=== PATIENT | male | born 1970 | race African-American/Black ===

== ENCOUNTER 2023-04-19 13:49 | Inpatient (IN) | payer MEDICAID, OTHER ==
[~2023-04-19] VITALS: Ht 182.9 cm; Wt 81.8 kg
[2023-04-19] MEDS ORDERED: ONDANSETRON HCL 4 MG/2 ML VIAL IV PRN (18:00)
[2023-04-19] MEDS ORDERED: SODIUM CHLORIDE 0.9% 1,000 ML IV SCH (18:00)
[2023-04-19] MEDS ORDERED: HYDROcodone-ACET 5/325MG TAB PO PRN (18:00)
[2023-04-19] MEDS ORDERED: MORPHINE SULFATE INJ 2 MG/ml SYRG IV PRN ×2 (18:00)
[2023-04-19] MEDS ORDERED: NITROGLYCERIN 0.4 MG SL TAB SL PRN (18:00)
[2023-04-19 18:18] LABS: Basophils # (auto) 0 10 ^3/uL (0-0.2); Basophils % (auto) 0.4 % (0.0-2.0); Eosinophils # (auto) 0.1 10 ^3/uL (0-0.8); Eosinophils % (auto) 1.7 % (0.0-7.0); Hematocrit 45.4 % (41.0-53.0); Hemoglobin 15.1 g/dL (13.5-17.5); Lymphocytes # (auto) 1.8 10 ^3/uL (0.4-5.4); Lymphocytes % (auto) 24.7 % (10.0-50.0); Mean Corpuscular Hemoglobin 31.6 pg (28.0-32.0); Mean Corpuscular Hgb Conc. 33.3 g/dL (32.0-36.0); Mean Corpuscular Volume 94.8 fL (80.0-100.0); Monocytes # (auto) 0.4 10 ^3/uL (0-1.3); Monocytes % (auto) 4.9 % (0.0-12.0); Neutrophils # (auto) 5.1 10 ^3/uL (1.6-8.6); Neutrophils % (auto) 68.3 % (37.0-80.0); Nucleated Red Blood Cells % 0.1 %; Red Blood Cells 4.79 10^6/uL (4.5-5.90); Red Cell Distribution Width 12.5 % (11.8-14.3); White Blood Cell 7.5 10^3/uL (4.4-10.8)
[2023-04-19 18:25] LABS: Alanine Aminotransferase 14 U/L (7-40); Albumin 4.6 g/dL (3.2-4.8); Alkaline Phosphatase 75 U/L (46-116); Anion Gap 10 (5-15); Aspartate Aminotransferase 20 U/L (13-40); BUN/Creatinine Ratio 5.8 (10.0-20.0); Bilirubin, Total 0.5 mg/dL (0.2-1.0); Blood Urea Nitrogen 15 mg/dL (9-23); Calcium 9.7 mg/dL (8.5-10.1); Carbon Dioxide 22 mmol/L (20-30); Chloride 104 mmol/L (98-107); Glucose 84 mg/dL (74-106); Potassium 4.8 mmol/L (3.5-5.1); Sodium 136 mmol/L (136-145); Total Protein 7.4 g/dL (5.7-8.2)
[2023-04-20] VITALS (7 sets, daily range): BP systolic 115–117; BP diastolic 71–76; PULSE 62–99; RESP 9–18; TEMP 36.7; O2SAT 95–100
[2023-04-20] MEDS: NITROGLYCERIN 0.4 MG SL TAB SL ONE (01:48)
[2023-04-20] MEDS: PANTOPRAZOLE 40 MG/10 ML VIAL INJ IV SCH (03:56)
[2023-04-20] MEDS: SODIUM CHLORIDE 0.9% 1,000 ML IV SCH (03:57)
[2023-04-20] MEDS: ASPirin 325 MG TAB PO ONE (03:57)
[2023-04-20] MEDS: cefTRIAXone 1GM/50ML D5W 50 ML IV SCH (03:57)
[2023-04-20 05:02] LABS: Basophils # (auto) 0 10 ^3/uL (0-0.2); Basophils % (auto) 0.5 % (0.0-2.0); Eosinophils # (auto) 0.2 10 ^3/uL (0-0.8); Eosinophils % (auto) 2.5 % (0.0-7.0); Hematocrit 39.2 % (41.0-53.0); Hemoglobin 13.1 g/dL (13.5-17.5); Lymphocytes # (auto) 3.1 10 ^3/uL (0.4-5.4); Lymphocytes % (auto) 44.6 % (10.0-50.0); Mean Corpuscular Hemoglobin 31.4 pg (28.0-32.0); Mean Corpuscular Hgb Conc. 33.4 g/dL (32.0-36.0); Mean Corpuscular Volume 94.2 fL (80.0-100.0); Monocytes # (auto) 0.6 10 ^3/uL (0-1.3); Monocytes % (auto) 8.3 % (0.0-12.0); Neutrophils # (auto) 3.1 10 ^3/uL (1.6-8.6); Neutrophils % (auto) 44.1 % (37.0-80.0); Nucleated Red Blood Cells % 0.1 %; Red Blood Cells 4.17 10^6/uL (4.5-5.90); Red Cell Distribution Width 12.4 % (11.8-14.3); White Blood Cell 6.9 10^3/uL (4.4-10.8)
[2023-04-20 05:30] LABS: Alanine Aminotransferase 12 U/L (7-40); Albumin 3.9 g/dL (3.2-4.8); Alkaline Phosphatase 66 U/L (46-116); Anion Gap 6 (5-15); Aspartate Aminotransferase 21 U/L (13-40); BUN/Creatinine Ratio 12.7 (10.0-20.0); Blood Urea Nitrogen 14 mg/dL (9-23); Calcium 8.9 mg/dL (8.5-10.1); Carbon Dioxide 26 mmol/L (20-30); Chloride 106 mmol/L (98-107); Cholesterol 131 mg/dL (< 200); Glucose 109 mg/dL (74-106); HDL Cholesterol 29 mg/dL (40-59); LDL Cholesterol 90 mg/dL (< 100); Potassium 3.9 mmol/L (3.5-5.1); Sodium 138 mmol/L (136-145); Triglycerides 68 mg/dL (< 150)
[2023-04-20 05:31] LABS: Bilirubin, Total 0.3 mg/dL (0.2-1.0); Total Protein 6.2 g/dL (5.7-8.2)
[2023-04-20 05:45] LABS: Lipase 57 U/L (12-53)
[2023-04-20] MEDS ORDERED: CIPR500T4 PO (10:26)
[2023-04-20] MEDS ORDERED: HYDR1TAB97 PO (11:13)
[2023-04-20 15:34] LABS: Urine Bacteria NONE SEEN /hpf (None Seen); Urine Blood Negative /uL (Negative); Urine Clarity Clear (Clear); Urine Color Yellow (Yellow); Urine Mucus MODERATE (None Seen); Urine Protein, UAD 1+ (Negative); Urine Specific Gravity 1.035 (1.001-1.035); Urine Urobilinogen Normal (Negative); Urine WBC 17 /hpf (0 - 3); Urine pH 5.5 (5.0-8.0)
[2023-04-20 15:42] LABS: Amphetamine Screen, Urine Pos (NEGATIVE); Barbiturate Scree,Urine Neg (NEGATIVE); Benzodiazephine Screen, Urine Pos (NEGATIVE); Cannabinoid Screen, Urine Pos (NEGATIVE); Cocaine Screen, Urine Neg (NEGATIVE); Opiate Scree,Urine Neg (NEGATIVE); Phencyclidine Screen, Urine Neg (NEGATIVE)
== END 2023-04-20 19:00 | disposition home or self-care (01) | DRG 203 ==
LOC: EDBD 13:49 → ER 13:49 → OVERFLOW 17:55 → TELE-CENTR 04-20 10:02
PROVIDERS: ADMIT Hospitalist; ATTEND Hospitalist
DX: R07.89 Other chest pain (principal); F19.10 Other psychoactive substance abuse, uncomplicated; I10 Essential (primary) hypertension; R00.0 Tachycardia, unspecified; Z87.891 Personal history of nicotine dependence
CPT/HCPCS: 36415; 71045; 76700; 78582; 80053; 80061; 80307; 81001; 83036; 83690; 84484; 85025; 85379; 87086; 93005; 93306; C9113; G0378

== ENCOUNTER 2023-06-14 00:50 | Emergency (ER) | payer MEDICAID ==
[~2023-06-14] VITALS: Ht 177.8 cm; Wt 72.7 kg
[~2023-06-14 00:50] MED LIST: CIPR500T4 PO; HYDR1TAB97 PO
[2023-06-14 00:56] VITALS: BP 131/73; RESP 16; O2SAT 99
[2023-06-14 01:46] LABS: Basophils # (auto) 0 10 ^3/uL (0-0.2); Basophils % (auto) 0.2 % (0.0-2.0); Eosinophils # (auto) 0.2 10 ^3/uL (0-0.8); Hematocrit 39.6 % (41.0-53.0); Lymphocytes # (auto) 3.4 10 ^3/uL (0.4-5.4); Lymphocytes % (auto) 51.3 % (10.0-50.0); Mean Corpuscular Hemoglobin 31.1 pg (28.0-32.0); Mean Corpuscular Hgb Conc. 32.8 g/dL (32.0-36.0); Mean Corpuscular Volume 94.6 fL (80.0-100.0); Monocytes # (auto) 0.4 10 ^3/uL (0-1.3); Monocytes % (auto) 6.6 % (0.0-12.0); Neutrophils # (auto) 2.6 10 ^3/uL (1.6-8.6); Neutrophils % (auto) 38.9 % (37.0-80.0); Red Blood Cells 4.19 10^6/uL (4.5-5.90); Red Cell Distribution Width 12.9 % (11.8-14.3); White Blood Cell 6.6 10^3/uL (4.4-10.8)
[2023-06-14 01:50] VITALS: PULSE 65
[2023-06-14 01:51] LABS: Alanine Aminotransferase 15 U/L (7-40); Albumin 4.6 g/dL (3.2-4.8); Alkaline Phosphatase 88 U/L (46-116); Anion Gap 7 (5-15); Aspartate Aminotransferase 26 U/L (13-40); BUN/Creatinine Ratio 13.3 (10.0-20.0); Bilirubin, Total 0.3 mg/dL (0.2-1.0); Blood Urea Nitrogen 13 mg/dL (9-23); Calcium 9.6 mg/dL (8.5-10.1); Carbon Dioxide 26 mmol/L (20-30); Chloride 106 mmol/L (98-107); Glucose 85 mg/dL (74-106); Potassium 3.5 mmol/L (3.5-5.1); Sodium 139 mmol/L (136-145); Total Protein 7.4 g/dL (5.7-8.2)
[2023-06-14 02:02] LABS: INR 0.98 (0.9-1.15); Partial Thromboplastin Time 26.8 SEC (24.5-34.5); Prothrombin Time 10.4 sec (9.3-11.8)
[2023-06-14] MEDS ORDERED: cefTRIAXone 1GM/50ML D5W 50 ML IV ONE (03:15)
== END 2023-06-14 04:15 | disposition home or self-care (01) ==
LOC: ER 00:50
DX: R07.89 Other chest pain (principal); Z79.2 Long term (current) use of antibiotics; Z79.899 Other long term (current) drug therapy
CPT/HCPCS: 36415; 71045; 80053; 83735; 83880; 84484; 85025; 85610; 85730; 93005

== ENCOUNTER 2024-03-27 19:09 | Emergency (ER) | payer MEDICAID ==
[~2024-03-27] VITALS: Ht 177.8 cm; Wt 67.6 kg
[2024-03-27 19:33] VITALS: BP 134/87; RESP 19; O2SAT 98
[2024-03-27 19:35] VITALS: PULSE 91
--- NOTE | 2024-03-27 20:11 | DVH ---
EXAM: CT HEAD WITHOUT CONTRAST INDICATION: lt side numbness TECHNIQUE: CT of the head without intravenous contrast. Radiation Dose Information: CT Dose: CTDI volume is 54.89 mGy. Dose-length product is 879.9 mGy*cm The dose indicators for CT are the volume Computed Tomography (CT) Dose Index (CTDIvol) and the Dose Length Product (DLP), and are measured in units of mGy and mGy-cm, respectively. These indicators are not patient dose, but values generated from the CT scanner acquisition factors. The report includes radiation exposure data for exposures received during this examination. COMPARISON: None FINDINGS: There is no evidence of acute intracranial hemorrhage, extra-axial collection, mass effect, midline s hift, herniation or hydrocephalus. 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 The ventricles, sulci and cisterns are age appropriate. The paul-white differentiation is intact. Patchy periventricular and subcortical white matter hypoattenuation is nonspecific but may be related to small vessel ischemic disease. The visualized paranasal sinuses and mastoid air cells are clear. The surrounding soft tissues and osseous structures are unremarkable. IMPRESSION: 1. 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 2. No acute intracranial hemorrhage. 3. No CT findings of displaced skull fracture
[2024-03-27 20:23] LABS: Basophils # (auto) 0 10 ^3/uL (0-0.2); Basophils % (auto) 0.5 % (0.0-2.0); Eosinophils # (auto) 0.2 10 ^3/uL (0-0.8); Eosinophils % (auto) 2.2 % (0.0-7.0); Hematocrit 39.2 % (41.0-53.0); Hemoglobin 13.4 g/dL (13.5-17.5); Mean Corpuscular Hgb Conc. 34.2 g/dL (32.0-36.0); Mean Corpuscular Volume 93.8 fL (80.0-100.0); Monocytes # (auto) 0.5 10 ^3/uL (0-1.3); Monocytes % (auto) 7.5 % (0.0-12.0); Neutrophils # (auto) 3.4 10 ^3/uL (1.6-8.6); Neutrophils % (auto) 47.8 % (37.0-80.0); Nucleated Red Blood Cells % 0.1 %; Platelet Count (auto) 277 10^3/uL (140-450); Red Blood Cells 4.18 10^6/uL (4.5-5.90); Red Cell Distribution Width 12.7 % (11.8-14.3)
[2024-03-27 20:36] LABS: Alanine Aminotransferase 16 U/L (7-40); Albumin 4.3 g/dL (3.2-4.8); Alkaline Phosphatase 68 U/L (46-116); Anion Gap 7 (5-15); BUN/Creatinine Ratio 17.8 (10.0-20.0); Bilirubin, Total 0.3 mg/dL (0.2-1.0); Blood Urea Nitrogen 18 mg/dL (9-23); Calcium 9.4 mg/dL (8.7-10.4); Carbon Dioxide 24 mmol/L (20-31); Glucose 88 mg/dL (74-106); Potassium 4.2 mmol/L (3.5-5.1); Sodium 139 mmol/L (136-145); Total Protein 6.2 g/dL (5.7-8.2)
[2024-03-27 20:39] LABS: Aspartate Aminotransferase 11 U/L (13-40); Chloride 108 mmol/L (98-107)
--- NOTE | 2024-03-27 20:52 | ED.PDOC ---
History of Present Illness HPI Comments 53 y/o M, presents to the ED for CC of left hand numbness. Patient states, that he has been experiencing left hand numbness since 1955 today (03/27/24). Patient comments on, concerns of possible CVA due to brother having history of CVA in the past. Patient comments on mild improvement of symptoms upon arrival of ED. Patient denies headache, chest pain, shortness or breath, or fatigue. No other symptoms or modifying factors at this time. Chief Complaint: Left Sided Weakness Time Seen by MD: 20:40 Primary Care Provider: viky Reviewed Notes: Nurses Notes, Medications, Allergies Allergies: Coded Allergies: NO KNOWN ALLERGIES (Unverified , 04/19/23) Home Meds Reported Medications Hydrocodone-Acetaminophen (Hydrocodone/Acetaminophen 5-325 mg) 1 Tab Tab, 1 TAB PO Q6HPRN for PAIN MDD 4 04/20/23 Ciprofloxacin Hcl (Ciprofloxacin Hcl) 500 Mg Tab, 1 TAB PO BID 04/20/23 Information Source: Patient Mode of Arrival: Ambulatory Severity: Mild Timing: Minutes Duration: Since onset Prehospital treatment: None Past Medical History PAST MEDICAL HISTORY: Denies Surgical History: Denies all surgeries Family History Family History: Reviewed,noncontributory to illness Social History Smoker: Non-Smoker Alcohol: Occasionally Drugs: Marijuana, Methamphetamine Lives In: Home Constitutional: denies: chills, diaphoresis, fatigue, fever, malaise, sweats, weakness, others EENTM: denies: blurred vision, double vision, ear bleeding, ear discharge, ear drainage, ear pain, ear ringing, eye pain, eye redness, hearing loss, mouth pain, mouth swelling, nasal discharge, nose bleeding, nose congestion, nose pain, photophobia, tearing, throat pain, throat swelling, voice changes, others Respiratory: denies: cough, hemoptysis, orthopnea, SOB at rest, shortness of breath, SOB with excertion, stridor, wheezing, others Cardiovascular: denies: chest pain, dizzy spells, diaphoresis, Dyspnea on exertion, edema, irregular heart beat, left arm pain, lightheadedness, palpitations, PND, syncope, others Gastrointestinal: denies: abdomen distended, abdominal pain, blood streaked bowels, constipated, diarrhea, dysphagia, difficulty swallowing, hematemesis, melena, nausea, poor appetite, poor fluid intake, rectal bleeding, rectal pain, vomiting, others Genitourinary: denies: burning, dysuria, flank pain, frequency, hematuria, incontinence, penile discharge, penile sore, pain, testicle pain, testicle swelling, urgency, others Neurological: reports: numbness (LEFT HAND); denies: dizziness, fainting, headache, left sided numbness, left sided weakness, paresthesia, pre-existing deficit, right sided numbness, right sided weakness, seizure, speech problems, tingling, tremors, weakness, others Musculoskeletal: denies: back pain, gout, joint pain, joint swelling, muscle pain, muscle stiffness, neck pain, others Integumetry: denies: bruises, change in color, change in hair/nails, dryness, laceration, lesions, lumps, rash, wounds, others Allergic/Immunocompromised: denies: Difficulty Healing, Frequent Infections, Hives, Itching, others Hematologic/Lymphatic: denies: anemia, blood clots, easy bleeding, easy bruising, swollen glands, others Endocrine: denies: excessive hunger, excessive sweating, excessive thirst, excessive urination, flushing, intolerance to cold, intolerance to heat, unexplained weight gain, unexplained weight loss, others Psychiatric: denies: anxiety, bipolar disorder, depression, hopeless, panic disorder, schizophrenia, sleepless, suicidal, others All Other Systems: Reviewed and Negative Physical Exam General Appearance: No Apparent Distress, Normal HEENT: Normal ENT Inspection, Pharynx Normal, TMs Normal Neck: Full Range of Motion, Non-Tender, Normal, Normal Inspection Respiratory: Chest Non-Tender, Lungs Clear, No Accessory Muscle Use, No Respiratory Distress, Normal Breath Sounds Cardiovascular: No Edema, No JVD, No Murmur, No Gallop, Normal Peripheral Pulses, Regular Rate/Rhythm Breast Exam: Deferred Gastrointestinal: No Organomegaly, Non Tender, No Pulsatile Mass, Normal Bowel Sounds, Soft Genitalia: Deferred Pelvic: Deferred Rectal: Deferred Extremities: No calf tenderness, Normal capillary refill, Normal inspection, Normal range of motion, Non-tender, No pedal edema Musculoskeletal : Apperance: Normal Neurologic: Alert, health science writer II-XII nml as Tested, No Motor Deficits, Normal Affect, Normal Mood, No Sensory Deficits, Other (NO PRONATOR DRIFT) Cerebellar Function: Normal Reflexes: Normal Skin: Dry, Normal Color, Warm Lymphatic: No Adenopathy Was a procedure done? Was a procedure done?: No Differential Dx Considerations may include: STROKE X-Ray, Labs, Meds, VS Vital Signs Date Time Temp Pulse Resp B/P (MAP) Pulse Ox O2 Delivery O2 Flow Rate FiO2 03/27/24 19:35 91 03/27/24 19:33 98.8 106 19 134/87 (103) 98 Lab Test 03/27/24 20:08 03/27/24 19:30 Range/Units White Blood Count 7.0 4.4-10.8 10^3/uL Red Blood Count 4.18 L 4.5-5.90 10^6/uL Hemoglobin 13.4 L 13.5-17.5 g/dL Hematocrit 39.2 L 41.0-53.0 % Mean Corpuscular Volume 93.8 80.0-100.0 fL Mean Corpuscular Hemoglobin 32.0 28.0-32.0 pg Mean Corpuscular Hemoglobin Concent 34.2 32.0-36.0 g/dL Red Cell Distribution Width 12.7 11.8-14.3 % Platelet Count 277 140-450 10^3/uL Mean Platelet Volume 8.3 6.9-10.8 fL Neutrophils (%) (Auto) 47.8 37.0-80.0 % Lymphocytes (%) (Auto) 42.0 10.0-50.0 % Monocytes (%) (Auto) 7.5 0.0-12.0 % Eosinophils (%) (Auto) 2.2 0.0-7.0 % Basophils (%) (Auto) 0.5 0.0-2.0 % Neutrophils # (Auto) 3.4 1.6-8.6 10 ^3/uL Lymphocytes # (Auto) 3.0 0.4-5.4 10 ^3/uL Monocytes # (Auto) 0.5 0-1.3 10 ^3/uL Eosinophils # (Auto) 0.2 0-0.8 10 ^3/uL Basophils # (Auto) 0 0-0.2 10 ^3/uL Nucleated Red Blood Cells 0.1 % Sodium Level 139 136-145 mmol/L Potassium Level 4.2 3.5-5.1 mmol/L Chloride Level 108 H 98-107 mmol/L Carbon Dioxide Level 24 20-31 mmol/L Anion Gap 7 5-15 Blood Urea Nitrogen 18 9-23 mg/dL Creatinine 1.01 0.700-1.30 mg/dL Glomerular Filtration Rate Calc 90 >90 mL/min BUN/Creatinine Ratio 17.8 10.0-20.0 Serum Glucose 88 74-106 mg/dL Calcium Level 9.4 8.7-10.4 mg/dL Total Bilirubin 0.3 0.2-1.0 mg/dL Aspartate Amino Transferase (AST) 11 L 13-40 U/L Alanine Aminotransferase (ALT) 16 7-40 U/L Alkaline Phosphatase 68 46-116 U/L Troponin I High Sensitivity 3 L </=54 ng/L Total Protein 6.2 5.7-8.2 g/dL Albumin 4.3 3.2-4.8 g/dL POC Glucose 127 H 70-106 mg/dl [place] [id number] Ph: [phone] DIAGNOSTIC IMAGING Diagnostic Imaging Report : [id number] Signed PATIENT: CLARI KIM ACCT: [id number] UNIT: [id number] : 1970 LOC: ER ROOM / BED: / AGE / SEX: 53 / M ADM STATUS: REG ER SERVICE 31 ORDERING PHYSICIAN: VINH REYES PROCEDURE(s): HWOCT - HEAD WITHOUT CONTRAST REASON: lt side numbness ORDER NUMBER(s): [id number], ACCESSION NUMBER(s): [id number] EXAM: CT HEAD WITHOUT CONTRAST INDICATION: lt side numbness TECHNIQUE: CT of the head without intravenous contrast. Radiation Dose Information: CT Dose: CTDI volume is 54.89 mGy. Dose-length product is 879.9 mGy*cm The dose indicators for CT are the volume Computed Tomography (CT) Dose Index (CTDIvol) and the Dose Length Product (DLP), and are measured in units of mGy and mGy-cm, respectively. These indicators are not patient dose, but values generated from the CT scanner acquisition factors. The report includes radiation exposure data for exposures received during this examination. COMPARISON: None FINDINGS: There is no evidence of acute intracranial hemorrhage, extra-axial collection, mass effect, midline shift, herniation or hydrocephalus. 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 The ventricles, sulci and cisterns are age appropriate. The paul-white differentiation is intact. Patchy periventricular and subcortical white matter hypoattenuation is nonspecific but may be related to small vessel ischemic disease. The visualized paranasal sinuses and mastoid air cells are clear. The surrounding soft tissues and osseous structures are unremarkable. IMPRESSION: 1. 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 2. No acute intracranial hemorrhage. 3. No CT findings of displaced skull fracture ATED BY: TAINA TRENT Jr., DO DICTATED DATE/TIME: 03/27/242007 SIGNED BY: TAINA TRENT Jr., SIGNED DATE/TIME: 03/27/242007 CC: X-Ray, Labs, Meds, VS Comment Imaging: X-rays and CT scans were reviewed and interpreted by this provider, imaging shows no fractures and no pathological disease. Pending radiology review. Laboratory: Labs reviewed and interpreted by this provider. No significant abnormalities noted. Patient has prior medical visits reviewed. Med reconciliation performed Vital signs reviewed Time of 1ST Reevaluation: 21:20 Reevaluation 1ST: Unchanged Patient Education/Counseling: Diagnosis, Treatment, Need For Follow Up (Patient advised to follow-up in the emergency room in the next 24 to 48 hours if symptoms do not improve. Advised follow-up with PCP in the next 3 to 5 days. Patient verbalized understanding. ) Family Education/Counseling: Need For Follow Up, No Family Present Departure 1 Departure Time of Disposition: 23:23 Impression: Primary Impression: Anxiety Additional Impressions: Hypertension Qualified Codes: I10 - Essential (primary) hypertension Left upper extremity numbness Disposition: 01 HOME / SELF CARE / HOMELESS Condition: Fair Discharged With: Self Critical Care Note Critical Care Time?: No Stability Stability form required: No Heart Score Heart Score: Heart Score Response (Comments) Value History N/A 0 EKG N/A 0 Age N/A 0 Risk Factors N/A 0 Troponin N/A 0 Total 0 I personally scribed for VINH REYES ([email or web address]) on 03/27/24 at 20:52. Electronically submitted by Dee Harris ([email or web address]). I personally scribed for VINH REYES ([email or web address]) on 03/27/24 at 21:26. Electronically submitted by Dee Harris ([email or web address]). VINH REYES Mar 27, 2024 20:52
--- NOTE | 2024-03-28 06:32 | ECG ---
[facility] Test Date: 2024-03-27 Test Time: 19:35:42 Pat Name: CLARI KIM Department: ER Room: Gender: Nutrition Helper: : 1970 Requested By: VINH REYES Order Number: [id number] Reading MD: Armond Jain Measurements Intervals [place] Rate: 91 P: 78 MT: 125 QRS: 75 QRSD: 93 T: 62 QT: 346 QTc: 426 Interpretive Statements Sinus rhythm Right atrial enlargement Electronically Signed On 03-29-2024 22:11:34 PST by Armond Jain Please click the below link to view image of tracing.
== END 2024-03-28 02:10 | disposition home or self-care (01) ==
LOC: ER 19:09
DX: F41.9 Anxiety disorder, unspecified (principal); R20.0 Anesthesia of skin; I10 Essential (primary) hypertension; F12.90 Cannabis use, unspecified, uncomplicated; F15.90 Other stimulant use, unspecified, uncomplicated
CPT/HCPCS: 36415; 70450; 80053; 82947; 82962; 84484; 85025; 93005